=== PATIENT | female | born 1985 | race Caucasian/White ===

== ENCOUNTER 2022-06-24 16:56 | Inpatient (IN) | payer OTHER, SELFPAY ==
[2022-06-24 17:17] VITALS: BMI 45.4
[2022-06-24 18:04] VITALS: BP 140/88; PULSE 112
[2022-06-24] MEDS: miSOPROStoL 25 MCG/0.25 TABLET VAGINAL ×2 (18:06→20:59)
[2022-06-24 18:21] LABS: SARS PCR* Negative SARS-CoV-2 (Negative)
[2022-06-24 18:22] VITALS: BP 142/83; PULSE 106
--- NOTE | 2022-06-24 19:16 | PM.OBHPLI ---
OB - H&P: HPI Labor/Induction History of Present Illness Time Seen by Provider: 19:16 Date Seen: 06/24/22 Chief Complaint: The patient is a 37 year old 3 para 1 at 38w6d gestation by early ultrasound. (was not sure on dates, conceived shortly after nexplanon removal) who presents with induction of labor for AMA. Chief complaint: IOL 38.6 AMA : 3 Para: 1 Indications for induction: other (ama ) Narrative: Mercedes Morris is a 37 year old female who presents for IOL for AMA, BMI>45. Patient had failed 1 hour GTT, but passed 3 hour GTT. She has anxiety, treated with zoloft. Her first had 28 week IUFD with sacroccygeal teratoma. Growth 90%ile on last growth scan. History of Present Dating criteria: based on 1st trimester US only (conceived shortly after nexplanon was removed. ) care: good care Ultrasounds: normal 1st trimester US and normal mid trimester US complications comment: AMA, BMI >45 Labs Blood type: O (+) positive Rubella: immune RPR/VDLR: nonreactive GBS status: negative HBsAG: negative Review of Systems Status of ROS: Reports: 10 or more systems reviewed and unremarkable except as noted in History and below Meds Home Medications and Allergies Home Medications Medication Instructions Recorded Confirmed Type montelukast 10 mg tablet 10 mg PO DAILY 06/24/22 06/24/22 History sertraline 100 mg tablet 100 mg PO DAILY 06/24/22 06/24/22 History OB - H&P: Exam Physical Exam: Vital signs: Pulse BP 106 H 142/83 H 06/24/22 18:22 06/24/22 18:22 Constitutional: Constitutional: no acute distress Routine HEENT Exam: Head: Present atraumatic ENT: Present mucous membranes moist Routine Neck Exam: Neck: Present full ROM Detailed Neck Exam: Thyroids: Thyroid: Present normal Routine Respiratory Exam: Respiratory: Present CTA bilaterally Routine Cardiovascular Exam: Cardiovascular: RRR, S1 and S2 Detailed Labor and Delivery Exam: Patient Gravid: Yes Dilation (cm): 1 Effacement (%): 0 Cervix position: posterior Consistency: firm Cervical ripeness score: 2 Tachysystole: No Routine Skin Exam: Present intact Routine Neurological Exam: Present alert Routine Psychiatric Exam: Present normal affect OB - Problem Based A/P Additional Plan (1) Term of female : Status: Acute (2) Obesity: Status: Acute (3) AMA (advanced maternal age) multigravida 35+: Status: Acute Delivery/Labor/Induction Plan Plan: induction Induction method: per misoprostol protocol
[2022-06-24 19:23] LABS: Basophils Absolute Auto 0.03 K/uL (0.00-0.30); Basophils Percent Auto 0.3 % (0.0-3.0); Eosinophils Absolute Auto 0.07 K/uL (0.00-0.50); Eosinophils Percent Auto 0.8 % (0.0-7.0); Hematocrit 35.6 % (33.0-51.0); Hemoglobin* 12.2 gm/dL (12.0-16.0); Immature Granulocytes Abs Auto 0.03 K/uL (0.00-0.30); Immature Granulocytes Pct Auto 0.3 %; Lymphocytes Percent Auto 15.9 % (20-44); Mean Corpuscular HGB Conc 34 gm/dL (32-36); Mean Corpuscular Hemoglobin 31 pg (26-34); Mean Corpuscular Volume 91 fL (80-100); Monocytes Percent Auto 9.9 % (0.0-11.0); Neutrophils Percent Auto 72.8 % (42.0-72.0); Platelet Count* 189 K/uL (140-440); RDW Coefficient of Variation % 12.4 % (11.5-15.5); Red Blood Count 3.92 m/uL (4.00-5.20); White Blood Count* 8.83 K/uL (4.50-11.00)
[2022-06-24 19:24] VITALS: BP 143/92; PULSE 98
[2022-06-24 19:25] LABS: Slide Review Reflex No
[2022-06-24 19:32] VITALS: BP 141/92; PULSE 108; RESP 16; TEMP 36.6
[2022-06-24 21:10] VITALS: BP 136/72; PULSE 96; RESP 16; TEMP 36.8
[2022-06-25] VITALS (84 sets, daily range): BP systolic 103–201; BP diastolic 58–104; PULSE 81–202; RESP 16–28; TEMP 36.6–37.6; O2SAT 90–100
[2022-06-25] MEDS: miSOPROStoL 25 MCG/0.25 TABLET VAGINAL ×2 (03:26)
[2022-06-25] MEDS: LACTATED RINGERS 1000 ML 1,000 ML 500 ML IV (04:08)
--- NOTE | 2022-06-25 06:15 | P.OBPN_ITS ---
Subjective Time Seen by Provider: 06:16 Date Seen: 06/25/22 Narrative: Patient has done well overnight. Received 5 doses of vaginal cytotec. Is rober regularly, rating them 5-6/10. Objective Vital Signs: Last Vital Signs Temp 98.3 F 06/25/22 00:00 Pulse 84 06/25/22 06:14 Resp 16 06/25/22 00:00 BP 140/63 H 06/25/22 06:14 Pelvic Exam Dilation (cm): 3 Effacement (%): 70 Station: -2 Contractions Monitor mode: External Contraction pattern: Regular Contraction intensity: Moderate Pitocin Rate (mU/min): 0 Assessment Assessment: induction ongoing Station: -2 Status: Category l Heart Rate Baseline: 125 Perlite Grinder Variability: Moderate (6-25) Monitor Accelerations: Present Monitor Decelerations: None Labor Progress: Malone score is now 6. Will stop cytotec and start pitocin 4 hours after last dose (approximately 7am). Plan Plan: - plan AROM at noon if not delivered - anticipate
[2022-06-25 07:07] LABS: Hematocrit 37.2 % (33.0-51.0); Hemoglobin* 12.8 gm/dL (12.0-16.0); Mean Corpuscular HGB Conc 34 gm/dL (32-36); Mean Corpuscular Hemoglobin 31 pg (26-34); Mean Corpuscular Volume 91 fL (80-100); Platelet Count* 188 K/uL (140-440); White Blood Count* 11.23 K/uL (4.50-11.00)
[2022-06-25 07:15] LABS: Slide Review Reflex No
[2022-06-25 07:26] LABS: Alanine Aminotransferase* 65 U/L (4-35); Aspartate Amino Transferase* 53 U/L (12-35); Creatinine* 0.5 mg/dL (0.5-1.5); Est. Creatinine Clearance* 152.72; Estimated Glomerular Filt Rate 125 ml/min
[2022-06-25 07:27] LABS: Blood Urea Nitrogen* 7 mg/dL (5-24); INR 0.98 (0.91-1.10); Prothrombin Time 13.5 Seconds; Uric Acid* 5.9 mg/dL (2.2-8.4)
[2022-06-25 07:28] LABS: Fibrinogen* 497 mg/dL (200-450); Partial Thromboplastin Time* 27 Seconds (23-33)
[2022-06-25 08:17] LABS: Creatinine Urine 42.4 mg/dL; Total Protein Urine 13 mg/dL
[2022-06-25] MEDS: MAGNESIUM IV 4 GM/100 ML PIGGYBACK IVPB (09:13)
[2022-06-25] MEDS: LACTATED RINGERS 1000 ML 1,000 ML 75 ML IV ×2 (09:24→16:29)
--- NOTE | 2022-06-25 09:48 | PM.OBPNL ---
Subjective Time Seen by Provider: 09:49 Date Seen: 06/25/22 Narrative: Patient has developed elevated bp >160 systolic x 2 and protein/cr ratio of 0.3. diagnosed with preeclampsia with severe features and magnesium was started. Patent has been rober without starting pitocin. SROM, AROM of forebag. Objective Vital Signs: Last Vital Signs Temp 98.8 F 06/25/22 09:42 Pulse 108 H 06/25/22 09:42 Resp 28 H 06/25/22 09:42 BP 184/104 H 06/25/22 09:42 Pulse Ox 99 06/25/22 09:21 Pelvic Exam Dilation (cm): 4-5 Effacement (%): 80 Station: -2 Contractions Monitor mode: External Contraction pattern: Regular Contraction intensity: Moderate Pitocin Rate (mU/min): 0 Assessment Assessment: active labor Station: -2 Amniotic Membrane Status: SROM Status: Category l Heart Rate Baseline: 125 Clinical Social Worker Variability: Moderate (6-25) Monitor Accelerations: Present Monitor Decelerations: None Plan Plan: - magnesium for preeclampsia with severe features. Labs q6h. Monitor for symptoms (asymptomatic at this time) - FYI page sent to [employer]UNICATION[employer] ENGINE[employer] sent that I started magnesium. - Peds alerted to attend delivery - Anticipate .
[2022-06-25] MEDS: LABETALOL HCL 5 MG/ML inj IVP (10:00)
[2022-06-25] MEDS: SODIUM CHLORIDE 0.9 % (FLUSH) 10 ML SYRINGE IVF (10:02)
[2022-06-25] MEDS: ROPIVACAINE 0.2% 100 ml 100 ML 12 MG EPIDURAL (10:30)
--- NOTE | 2022-06-25 10:54 | PM.ANBPRC ---
[facility] Social History Smoking Status: Former smoker Meds Home Medications and Allergies Home Medications Medication Instructions Recorded Confirmed Type montelukast 10 mg tablet 10 mg PO DAILY 06/24/22 06/24/22 History sertraline 100 mg tablet 100 mg PO DAILY 06/24/22 06/24/22 History Allergies Allergy/AdvReac Type Severity Reaction Status Date / Time No Known Drug Allergies Allergy Verified 06/25/22 01:04 Results Labs Labs: Laboratory Results - last 24 hr 06/24/22 06/24/22 06/25/22 17:06 19:16 06:55 WBC 8.83 11.23 H RBC 3.92 L 4.10 Hgb 12.2 12.8 Hct 35.6 37.2 MCV 91 91 MCH 31 31 MCHC 34 34 RDW Coeff of Rebeca 12.4 Plt Count 189 188 Neut % (Auto) 72.8 H Lymph % (Auto) 15.9 L Christian % (Auto) 9.9 Eos % (Auto) 0.8 Baso % (Auto) 0.3 Neut # (Auto) 6.40 Lymph # (Auto) 1.40 Christian # (Auto) 0.90 Eos # (Auto) 0.07 Baso # (Auto) 0.03 INR 0.98 APTT 27 Fibrinogen 497 H BUN 7 Creatinine 0.5 Estimated Creat Clear 152.72 Estimated GFR 125 Uric Acid 5.9 AST 53 H ALT 65 H Urine Creatinine Protein/Creatinin Ratio Urine Total Protein SARS-CoV-2 (PCR) Negative SARS-CoV-2 Blood Type O Positive Antibody Screen NEGATIVE 06/25/22 07:30 WBC RBC Hgb Hct MCV MCH MCHC RDW Coeff of Rebeca Plt Count Neut % (Auto) Lymph % (Auto) Christian % (Auto) Eos % (Auto) Baso % (Auto) Neut # (Auto) Lymph # (Auto) Christian # (Auto) Eos # (Auto) Baso # (Auto) INR APTT Fibrinogen BUN Creatinine Estimated Creat Clear Estimated GFR Uric Acid AST ALT Urine Creatinine 42.4 Protein/Creatinin Ratio 0.30 H Urine Total Protein 13 SARS-CoV-2 (PCR) Blood Type Antibody Screen Vital Signs Vital Signs: Last Vital Signs Temp 98.8 F 06/25/22 09:42 Pulse 85 06/25/22 10:54 Resp 28 H 06/25/22 09:42 BP 129/71 06/25/22 10:54 Pulse Ox 99 06/25/22 09:21 Weight: 131.542 kg Height: 170.18 cm Anesthesia Procedures Epidural Insertion Patient Location: OB Start Time: 10:00 Stop Time: 10:55 Start Date: 06/25/22 Stop Date: 06/25/22 Reason for Block: procedure for pain Patient Position: sitting Performed By: Cristofer Beard Preanesthetic Checklist: IV checked, risks and benefits discussed, surgical consent, monitors and equipment checked, pre-op evaluation, timeout performed and anesthesia consent Prep: chlorhexidine gluconate Monitoring: blood pressure monitoring, continuous pulse oximetry and heart rate Approach: midline Vertebral Space: lumbar (1-5) Epidural Technique: JOEL saline Needle Type: Tuohy needle Injection Technique: continuous catheter Needle gauge: 17 Needle Length (cm): 10 cm Needle Insertion Depth (cm): 8 Catheter Gauge: 19 Catheter Type: multi-orifice Catheter at skin depth (cm): 14 Test Dose Result: negative and lidocaine 1.5% with epinephrine 1 to 200,000
[2022-06-25] MEDS: OXYTOCIN 30 unit/500 ML in NS 30 UNIT/500 ML BAG IVPB (11:30)
[2022-06-25 12:34] LABS: Hematocrit 38.9 % (33.0-51.0); Hemoglobin* 13.3 gm/dL (12.0-16.0); Mean Corpuscular HGB Conc 34 gm/dL (32-36); Mean Corpuscular Hemoglobin 31 pg (26-34); Mean Corpuscular Volume 91 fL (80-100); Platelet Count* 204 K/uL (140-440); Red Blood Count 4.26 m/uL (4.00-5.20); White Blood Count* 13.43 K/uL (4.50-11.00)
[2022-06-25 12:48] LABS: Slide Review Reflex No
[2022-06-25] MEDS: ONDANSETRON 2 MG/ML inj 4 MG IV (12:53)
[2022-06-25 12:55] LABS: Alanine Aminotransferase* 71 U/L (4-35); Aspartate Amino Transferase* 58 U/L (12-35); Blood Urea Nitrogen* 7 mg/dL (5-24); Creatinine* 0.5 mg/dL (0.5-1.5); Est. Creatinine Clearance* 152.72; Estimated Glomerular Filt Rate 125 ml/min
--- NOTE | 2022-06-25 16:04 | W.PM.OBVAGDE ---
OB Procedure Vag Delivery Mother Details Mother Details: The patient is a 37 year-old, 3, Para 1, admitted on 06/24/22 at 38w6d gestation for IOL for AMA. She received cytotec overnight and gunderson score favorable at 6am. Unfortunately, she developed elevated blood pressure in severe range. Labs showed protein/cr ratio of 0.3. Otherwise reassuring. We diagnosed severe preeclampsia based on this and magnesium was started. Patient did require labetalol x 1 for elevated blood pressures. Epidural was placed for analgesia and patient required no further treatment (Magnesium continued). Patient had slow progression. Had SROM and then we broke forebag. Had pitocin added. : 3 Para: 1 Weeks Gestation: 39 Admission Date: 06/24/22 Additional Details Amniotic Membrane Status: SROM Amniotic Membrane Rupture Date: 06/25/22 Amniotic Membrane Rupture Time: 09:31 Amniotic Membrane Fluid Description: Clear Analgesia/Anesthesia Type: Epidural Waterbirth: No Pitcoin: Yes Intrapartal Events: Labor Induction Induction Method: per misoprostol protocol, per pitocin protocol and other (rupture of forebag) Labor Onset: 10:00 Complete: 13:38 Pushin:44 Heart: heart tones during second stage showed intermittent early and variable decels with pushing. Good variability. Delivery Details Delivery Date: 06/25/22 Delivery Time: 15:31 Route of delivery: Gender: Male Infant Viability: Alive; Heart Rate Present Position at Delivery: OA Delivery Details: Delivered over intact perineum via spontaneous vaginal delivery. Patient had nuchal cord that was unable to be reduced and was delivered through. Had 25 second shoulder dystocia. Resolved with Red and suprapubic pressure. was placed on maternal abdomen.? Cord was clamped immediately and baby was taken to warmer. EDWIN Blair was in attendance at delivery due to maternal magnesium, please see her resuscitation note for details. There was terminal meconium. Infant weight [id number]. 1 Minute Interval Total Score: 2 5 Minute Interval Total Score: 8 10 Minute Interval Total Score: 8 Additional Details Shoulder Dystocia: Yes Placenta Delivery Time: 15:43 Placental Delivery Description: Spontaneous Blood Loss: 50 Laceration: None Blood Loss Measurement Type: QBL Bakri Used: No Sponge/Need Count Correct: Yes Cord Vessel Description: 3 Vessels, Nuchal Cord and Delivered through Event Summary Status: Mother and infant were stable after delivery. Disposition: floor
[2022-06-25 18:43] LABS: Hematocrit 37.1 % (33.0-51.0); Hemoglobin* 12.7 gm/dL (12.0-16.0); Mean Corpuscular HGB Conc 34 gm/dL (32-36); Mean Corpuscular Hemoglobin 31 pg (26-34); Mean Corpuscular Volume 91 fL (80-100); Platelet Count* 230 K/uL (140-440); Red Blood Count 4.07 m/uL (4.00-5.20); White Blood Count* 23.22 K/uL (4.50-11.00)
[2022-06-25 18:47] LABS: Slide Review Reflex No
[2022-06-25 18:59] LABS: Alanine Aminotransferase* 74 U/L (4-35); Aspartate Amino Transferase* 71 U/L (12-35); Blood Urea Nitrogen* 7 mg/dL (5-24); Creatinine* 0.5 mg/dL (0.5-1.5); Est. Creatinine Clearance* 152.72; Estimated Glomerular Filt Rate 125 ml/min
[2022-06-25] MEDS: miSOPROStoL 800 MCG/4 TABLET PR (20:00)
[2022-06-25] MEDS: TRANEXAMIC ACID 100 MG/ML INJ 1000 MG IV (20:14)
[2022-06-25 20:23] LABS: Basophils Percent Auto 0.1 % (0.0-3.0); Hematocrit 32.6 % (33.0-51.0); Hemoglobin* 10.9 gm/dL (12.0-16.0); Immature Granulocytes Pct Auto 0.4 %; Lymphocytes Percent Auto 6.3 % (20-44); Mean Corpuscular HGB Conc 33 gm/dL (32-36); Mean Corpuscular Hemoglobin 31 pg (26-34); Mean Corpuscular Volume 92 fL (80-100); Monocytes Percent Auto 3.8 % (0.0-11.0); Neutrophils Percent Auto 89.4 % (42.0-72.0); Platelet Count* 219 K/uL (140-440); RDW Coefficient of Variation % 12.6 % (11.5-15.5); Red Blood Count 3.54 m/uL (4.00-5.20); White Blood Count* 19.02 K/uL (4.50-11.00)
--- NOTE | 2022-06-25 20:39 | PM.OBCN1 ---
OB - CN: HPI Date of Consult Time Seen by Provider: 20:00 Date Seen: 06/25/22 Patient: Raquel Patient Consult date: 06/25/22 Requesting Physician: Karen Durand MD Primary Care Provider: Namita Mo MD Consult Narrative Narrative: Mercedes is a 37-year-old 3 para 2101 who is from a vaginal delivery at 5:35 p.m. no lacerations. Quantitative blood loss at delivery was 50 mL. I was called to the patient's room for cis significant bleeding. Blood loss when I entered the room was reported to be 1212 mL. The patient's labor course was complicated by severe preeclampsia by both blood pressure and liver function test criteria. She is currently on magnesium sulfate for seizure prophylaxis. She is having laboratory testing done every 6 hours. Her last hemoglobin was performed at 6:35 p.m. and was 12.7. I ordered another CBC stat, INR, PTT and fibrinogen. A Felton catheter was placed for 200 mL of very concentrated urine and I performed a bimanual exam which resulted in greater than 700 mL of clot. Once the clot was removed the uterus was noted to be firm, 1 cm below the umbilicus and minimal bleeding noted. Total blood loss after delivery 1957 mL. Massive transfusion protocol was initiated. She will be getting at least 1 unit of O-negative, 1 unit FFP and the lab was in the process of crossing her for 2 units so whichever red blood cells are ready soonest whether there O negative or cross matched will be given. The patient was able to talk through this entire procedure. She was given nitrous gas for pain control for the bimanual exam. Her most recent pulse was 103. Most recent blood pressure 120/68: Checking blood pressure every 15 minutes. I will check a CBC, INR, PTT and fibrinogen again after 2 units packed red blood cells and 1 unit FFP have been transfused. History of Present complications comment: AMA, BMI >45 History History 3 Elective abortions Para 1 Spontaneous abortions Hx # Term Pregnancies Ectopic pregnancies Hx # Pregnancies Multiple births Number of Living Children 1 Labs Blood type: O (+) positive Rubella: immune RPR/VDLR: nonreactive GBS status: negative HBsAG: negative OB Labs: Lab Assessment Start: 06/24/22 17:00 Freq: ONCE Status: Complete Protocol: PC.OBGBS Activity Type Activity Date Activity User E-sign Co-sign Detail Recorded Client Recorded Date Recorded By Document 06/24/22 17:18 [facility] [id number] 06/24/22 17:18 [facility] 06/24/22 17:18 Lab Assessment GBS Negative Previous Louise with Invasive GBS No Does Patient Meet Criteria No No Treatment Needed OK Maternal Blood Type O Maternal RH Factor Positive Evaluate Maternal Rubella Immune Status Immune Hepatitis B Surface Antigen Negative Maternal HIV Status Negative Maternal Syphillis (RPR) Status Negative Are Labs Available Yes [facility] Medical History (Updated 06/25/22 @ 20:48 by Ilsa Osman MD) Macrosomic baby ?P08.0 - Exceptionally large baby (ICD-10) hemorrhage ?O72.1 - Other immediate hemorrhage (ICD-10) Shoulder dystocia during labor and delivery, delivered ?O66.0 - Obstructed labor due to shoulder dystocia (ICD-10) Term of female ?Z37.0 - Single live (ICD-10) Social History Smoking Status: Former smoker Meds Home Medications and Allergies Home Medications Medication Instructions Recorded Confirmed Type montelukast 10 mg tablet 10 mg PO DAILY 06/24/22 06/24/22 History sertraline 100 mg tablet 100 mg PO DAILY 06/24/22 06/24/22 History Allergies Allergy/AdvReac Type Severity Reaction Status Date / Time No Known Drug Allergies Allergy Verified 06/25/22 01:04 OB - H&P: Exam Physical Exam: Vital signs: Temp Pulse Resp BP Pulse Ox 99.0 F 114 H 20 103/69 95 06/25/22 19:56 06/25/22 19:56 06/25/22 19:56 06/25/22 19:56 06/25/22 19:56 OB - Results Labs Labs: Short CBC 06/25/22 06/25/22 06/25/22 Range/Units 06:55 12:27 18:35 WBC 11.23 H 13.43 H 23.22 H (4.50-11.00) K/uL Hgb 12.8 13.3 12.7 (12.0-16.0) gm/dL Hct 37.2 38.9 37.1 (33.0-51.0) % Plt Count 188 204 230 (140-440) K/uL BMP 06/25/22 06/25/22 06/25/22 06:55 12:27 18:35 BUN 7 7 7 Creatinine 0.5 0.5 0.5 Liver Function 06/25/22 06/25/22 06/25/22 Range/Units 06:55 12:27 18:35 AST 53 H 58 H 71 H (12-35) U/L ALT 65 H 71 H 74 H (4-35) U/L OB - CN: A/P Assessment and Plan (1) Term of female : Status: Inactive (2) Obesity: Status: Acute (3) AMA (advanced maternal age) multigravida 35+: Status: Acute (4) hemorrhage: Problem details: 1gm IV TXA, 800mg [place] cytotec, and 20u pitocin in 1L LR. Status: Acute Assessment and Plan: 1. Getting 2u pRBC's + 1 uFFP 2. Recheck cbc, fibrinogen, INR and PTT after transfusion of above. 3. 2gm IV ancef x 1 now to prevent infection after manual removal of blood clots from the uterus. 4. Continue to monitor vital signes closely. 5. Getting preeclampsia labs checked Q6hr so will be getting Q6hr hgb and platelets. (5) Macrosomic baby: Problem details: 9#5oz. Status: Acute
[2022-06-25 20:46] LABS: Slide Review Reflex No
--- NOTE | 2022-06-25 20:48 | P.EN_ITS ---
Chart Event Note Time Seen by Provider: 20:48 Date Seen: 06/25/22 Chart Event Note: I was called in to assess the patient due to concern for post- hemorrhage. Per nursing, patient was noted to have increased vaginal bleeding at around 1930. At the time I was called QBL was just under 1000 cc. Upon my arrival, AUDIT CLERKS SUPERVISOR electronic integrated systems mechanic, Dr. Osman, was at the bedside. Patient had received IV pitocin, rectal cytotec, and 1g of TXA was being started. Urinary catheter was placed with return of several hundred ccs of urine. Dr. Osman performed a bimanual exam with return of ~700 cc of blood clots. Massive transfusion protocol was called. Patient will receive 2 units of PRBC and 1 unit FFP. Patient remained alert and talking throughout. Tachycardic to the 1teens, vitals otherwise WNL. No hypotension.
[2022-06-25 21:01] LABS: INR 1.01 (0.91-1.10); Prothrombin Time 13.9 Seconds
[2022-06-25 21:02] LABS: Fibrinogen* 444 mg/dL (200-450); Partial Thromboplastin Time* 27 Seconds (23-33)
[2022-06-25] MEDS: CEFAZOLIN 2 GM INJ IVP (22:57)
[2022-06-26] VITALS (7 sets, daily range): BP systolic 120–150; BP diastolic 70–87; PULSE 92–109; RESP 16–161; TEMP 36.7–36.9; O2SAT 95–98
[2022-06-26] MEDS: SERTRALINE 100 MG TABLET PO ×2 (00:33→22:11)
[2022-06-26 01:21] LABS: Hematocrit 31.4 % (33.0-51.0); Hemoglobin* 10.7 gm/dL (12.0-16.0); Mean Corpuscular HGB Conc 34 gm/dL (32-36); Mean Corpuscular Hemoglobin 31 pg (26-34); Mean Corpuscular Volume 91 fL (80-100); Platelet Count* 193 K/uL (140-440); Red Blood Count 3.45 m/uL (4.00-5.20); White Blood Count* 16.97 K/uL (4.50-11.00)
[2022-06-26 01:36] LABS: Slide Review Reflex No
[2022-06-26 01:55] LABS: Creatinine* 0.5 mg/dL (0.5-1.5); Est. Creatinine Clearance* 152.72; Estimated Glomerular Filt Rate 125 ml/min
[2022-06-26 01:56] LABS: Alanine Aminotransferase* 67 U/L (4-35); Aspartate Amino Transferase* 56 U/L (12-35); Blood Urea Nitrogen* 9 mg/dL (5-24)
[2022-06-26 06:33] LABS: Hematocrit 30.9 % (33.0-51.0); Hemoglobin* 10.4 gm/dL (12.0-16.0); Mean Corpuscular HGB Conc 34 gm/dL (32-36); Mean Corpuscular Hemoglobin 31 pg (26-34); Mean Corpuscular Volume 92 fL (80-100); Platelet Count* 203 K/uL (140-440); Red Blood Count 3.37 m/uL (4.00-5.20); White Blood Count* 14.86 K/uL (4.50-11.00)
[2022-06-26 06:46] LABS: Slide Review Reflex No
[2022-06-26 06:50] LABS: Alanine Aminotransferase* 65 U/L (4-35); Aspartate Amino Transferase* 52 U/L (12-35); Blood Urea Nitrogen* 9 mg/dL (5-24); Creatinine* 0.6 mg/dL (0.5-1.5); Est. Creatinine Clearance* 127.26; Estimated Glomerular Filt Rate 120 ml/min
--- NOTE | 2022-06-26 11:10 | PM.OBPNVD1 ---
OB - PN:Subj Subjective Time Seen by Provider: 11:10 Date Seen: 06/26/22 Interval history: hemorrhage last evening at 1930. QBL 1957 mL. Massive transfusion protocol initiated, patient received 2 units PRBC and 1 unit FFP. Subsequently did well overnight. BPs remained WNL. On magnesium for severe pre-eclampsia. status: feeding status: breast and bottle feeding Narrative: Patient states she is feeling good this AM. Able to get out of bed and clean-up. Requests her hayden catheter be removed. Minimal discomfort. Bleeding is minimal. well with good latch overnight. Denies headache, blurry vision. A little foggy on mag. OB - PN: Obj Exam Physical Exam: Vital signs: Temp Pulse Resp BP Pulse Ox 98.2 F 104 H 18 120/70 96 06/26/22 03:15 06/25/22 22:10 06/26/22 03:15 06/26/22 03:15 06/26/22 03:15 Narrative: General appearance: Well-appearing adult female. Alert, oriented and appropriate. Sitting up in hospital bed. HEENT: EOMI, no conjunctival injection or discharge. MMM. Neck: Supple. CV: RRR, no rubs, murmurs or extra heart sounds. Pulm: CTAB, no wheezes, rales or rhonchi. Abdomen: Soft, non-tender. Fudus palpated 1 cm below the umbilicus. MSK: Moving all extremities. Ext: Warm and well-perfused. No LE edema. Skin: No rashes appreciated over exposed skin. Neuro: Grossly normal strenth and sensation. No focal deficits. Psych: Normal affect. Urinary Catheter Management: Urethral: Cath placed during this visit: no OB - PN: Obj Data Labs Labs: Laboratory Results - last 24 hr 06/24/22 06/25/22 06/25/22 19:16 12:27 18:35 WBC 13.43 H 23.22 H RBC 4.26 4.07 Hgb 13.3 12.7 Hct 38.9 37.1 MCV 91 91 MCH 31 31 MCHC 34 34 RDW Coeff of Rebeca Plt Count 204 230 Neut % (Auto) Lymph % (Auto) Sampson % (Auto) Eos % (Auto) Baso % (Auto) Neut # (Auto) Lymph # (Auto) Sampson # (Auto) Eos # (Auto) Baso # (Auto) INR APTT Fibrinogen BUN 7 7 Creatinine 0.5 0.5 Estimated Creat Clear 152.72 152.72 Estimated GFR 125 125 AST 58 H 71 H ALT 71 H 74 H Blood Type O Positive Antibody Screen NEGATIVE Crossmatch (AHG) See Detail 06/25/22 06/26/22 06/26/22 20:17 01:00 06:05 WBC 19.02 H 16.97 H 14.86 H RBC 3.54 L 3.45 L 3.37 L Hgb 10.9 L 10.7 L 10.4 L Hct 32.6 L 31.4 L 30.9 L MCV 92 91 92 MCH 31 31 31 MCHC 33 34 34 RDW Coeff of Rebeca 12.6 Plt Count 219 193 203 Neut % (Auto) 89.4 H Lymph % (Auto) 6.3 L Sampson % (Auto) 3.8 Eos % (Auto) 0.0 Baso % (Auto) 0.1 Neut # (Auto) 17.00 H Lymph # (Auto) 1.20 Sampson # (Auto) 0.70 Eos # (Auto) 0.00 Baso # (Auto) 0.00 INR 1.01 APTT 27 Fibrinogen 444 BUN 9 9 Creatinine 0.5 0.6 Estimated Creat Clear 152.72 127.26 Estimated GFR 125 120 AST 56 H 52 H ALT 67 H 65 H Blood Type Antibody Screen Crossmatch (AHG) OB - PN: A/P Vaginal Delivery Assessment and Plan (1) Term of female : Status: Inactive Assessment and Plan: - Continue breast/bottle feed ad harleen - Encourage ambulation (2) Obesity: Status: Acute (3) AMA (advanced maternal age) multigravida 35+: Status: Acute (4) hemorrhage: Problem details: 1gm IV TXA, 800mg [place] cytotec, and 20u pitocin in 1L LR. Massive transfusion protocol, s/p 2 units PRBC and 1 unit FFP. 0600 Hgb 06/26 10.4. Status: Acute Assessment and Plan: - Vitals and hgb stable. Continue to monitor bleeding - D/c hayedn catheter (5) Macrosomic baby: Problem details: 9#5oz. at 39w0d. 25 second shoulder dystocia. Status: Acute (6) Severe pre-eclampsia: Problem details: Magnesium started AM 06/25 for severe range blood pressures. Labs pr/cr ratio 0.3 and mildly elevated LFTs. Required single dose IV labetalol. BPs otherwise controlled w/o medication. Status: Acute Assessment and Plan: - Remains asymptomatic - Labs stable, improved - Plan to d/c magnesium at 1530 06/26 - Antihypertensives as needed. Currently well-controlled without medication - AM labs Plan Comments: - Anticipate discharge 06/27
[2022-06-26] MEDS: CETIRIZINE HCL 10 MG TABLET PO (22:10)
[2022-06-26] MEDS: MONTELUKAST 10 MG TABLET PO (22:10)
[2022-06-26] MEDS: DOCUSATE SODIUM 100 MG CAPSULE PO (22:10)
[2022-06-26] MEDS: LANOLIN CREAM 1 APPLIC TOPICAL (22:10)
[2022-06-27 00:30] VITALS: BP 125/85
[2022-06-27] MEDS: SODIUM CHLORIDE 0.9 % (FLUSH) 10 ML SYRINGE IVF (00:47)
[2022-06-27 03:47] VITALS: BP 124/84; PULSE 92; RESP 18; TEMP 36.9; O2SAT 95
[2022-06-27 06:39] LABS: Basophils Absolute Auto 0.03 K/uL (0.00-0.30); Basophils Percent Auto 0.3 % (0.0-3.0); Eosinophils Absolute Auto 0.17 K/uL (0.00-0.50); Eosinophils Percent Auto 1.6 % (0.0-7.0); Hematocrit 28.1 % (33.0-51.0); Hemoglobin* 9.5 gm/dL (12.0-16.0); Immature Granulocytes Abs Auto 0.05 K/uL (0.00-0.30); Immature Granulocytes Pct Auto 0.5 %; Lymphocytes Absolute Auto 2.91 K/uL (0.90-2.90); Mean Corpuscular HGB Conc 34 gm/dL (32-36); Mean Corpuscular Hemoglobin 31 pg (26-34); Mean Corpuscular Volume 93 fL (80-100); Monocytes Percent Auto 6.1 % (0.0-11.0); Neutrophils Absolute Auto 6.94 K/uL (1.7-7.0); Neutrophils Percent Auto 64.5 % (42.0-72.0); Platelet Count* 201 K/uL (140-440); Red Blood Count 3.03 m/uL (4.00-5.20); White Blood Count* 10.76 K/uL (4.50-11.00)
[2022-06-27 06:50] LABS: Slide Review Reflex No
[2022-06-27 06:55] LABS: Alanine Aminotransferase* 45 U/L (4-35); Aspartate Amino Transferase* 30 U/L (12-35); Blood Urea Nitrogen* 10 mg/dL (5-24); Creatinine* 0.5 mg/dL (0.5-1.5); Est. Creatinine Clearance* 152.72; Estimated Glomerular Filt Rate 125 ml/min
[2022-06-27 08:51] VITALS: BP 148/85; PULSE 108; RESP 18; TEMP 37.1; O2SAT 94
--- NOTE | 2022-06-27 10:31 | P.DS_ITS ---
DS: Providers Provider Time Seen by Provider: 10:31 Date Seen: 06/27/22 Date of admission: 06/24/22 16:56 Primary care physician: Namita Mo MD Admitting Clinician: Namita Mo MD Consults: Ilsa Osman MD Attending Physician on discharge: Namita Mo MD Date of Discharge: 06/27/22 DS: Diagnosis Discharge Diagnosis (1) Severe pre-eclampsia: Status: Acute Problem details: Magnesium started AM 06/25 for severe range blood pressures. Labs pr/cr ratio 0.3 and mildly elevated LFTs. Required single dose IV labetalol. BPs otherwise controlled w/o medication. (2) hemorrhage: Status: Acute Problem details: 1gm IV TXA, 800mg [place] cytotec, and 20u pitocin in 1L LR. Massive transfusion protocol, s/p 2 units PRBC and 1 unit FFP. 0600 Hgb 06/26 10.4. (3) Transfusion of blood during current hospitalization: Status: Acute (4) Macrosomic baby: Status: Acute Problem details: 9#5oz. at 39w0d. 25 second shoulder dystocia. (5) AMA (advanced maternal age) multigravida 35+: Status: Acute (6) Obesity: Status: Acute (7) : Status: Acute Exam Narrative: Exam Narrative: General appearance: Well-appearing adult female. Alert, oriented and appropriate. Sitting up in hospital bed. HEENT: EOMI, no conjunctival injection or discharge. MMM. Neck: Supple. CV: RRR, no rubs, murmurs or extra heart sounds. Pulm: CTAB, no wheezes, rales or rhonchi. Abdomen: Soft, non-tender. Fundus palpated 1 cm below the umbilicus. MSK: Moving all extremities. Ext: Warm and well-perfused. No LE edema. Skin: No rashes appreciated over exposed skin. Neuro: Grossly normal strength and sensation. No focal deficits. Psych: Normal affect. Const: Vital Signs, click to edit/add: Vital Signs - 24 hr 06/26/22 12:20 06/26/22 16:20 06/26/22 13:20 Temperature 98.5 F 98.5 F Pulse Rate [Pulse Oximeter] 102 H 109 H Respiratory Rate 18 161 H Blood Pressure [Le ft Arm] 150/87 H 131/80 137/83 Pulse Oximetry 98 96 Oxygen Delivery Me thod Room Air Room Air 06/26/22 14:25 06/26/22 20:09 06/27/22 00:30 Temperature 98.0 F Pulse Rate [Pulse Oximeter] 92 Respiratory Rate 18 Blood Pressure [Le ft Arm] 124/84 141/79 H 125/85 Pulse Oximetry 95 Oxygen Delivery Me thod Room Air 06/27/22 03:47 06/27/22 08:51 Temperature 98.5 F 98.7 F Pulse Rate [Pulse Oximeter] 92 108 H Respiratory Rate 18 18 Blood Pressure [Le ft Arm] 124/84 148/85 H Pulse Oximetry 95 94 Oxygen Delivery Me thod Room Air Room Air OB - DS: Summary Hospital Course Hospital Course: The patient is a 37 year old G 1 P 1101 at 39 weeks gestation that was admitted to the Center on 06/24/22 for IOL. Developed severe pre-eclampsia with severe range BP and mildly elevated LFTs on hospital day #1 and was started on magnesium. She had an vaginal delivery complicated by 25 second shoulder dystocia. She delivered a viable male . Delayed post- hemorrhage with QBL 1957 mL requiring massive transfusion protocol, received 2 units PRBC and 1 unit FFP. Subsequently recovered well. Occasional elevated BPs, non-severe range, but primarily 120s/80s, asymptomatic. Pre-E labs improving. She is breast feeding. Peripartum Data delivery method: Vaginal Laceration description: None Episiotomy description: None complications: transfusion [place] Infant Gender: Male Infant Discharge Plan: Home Status at Discharge Functional status at discharge: independent ambulation Overall status at discharge: patient is progressing back to baseline Time Spent with Patient Time attestation: Total time spent providing and/or coordinating discharge services: Time spent: Less than 30 minutes Discharge Plan Discharge Disposition: Home, Self-Care Date of Admission: 06/24/22 16:56 Attending Provider on Discharge: Kizzy Jones Consulting Providers: Ilsa Osman Primary Care Provider: Namita Mo Condition: Stable Anticipated Discharge Date/Time: 06/27/22 09:35 Discharge Medications: New acetaminophen 500 mg Tablet 1,000 mg PO Q6H PRNQty: 30 1RF docusate sodium 100 mg Capsule 100 mg PO DAILY Qty: 30 1RF ibuprofen 600 mg Tablet 600 mg PO Q6H PRNQty: 30 1RF Continued sertraline 100 mg tablet 100 mg PO DAILY montelukast 10 mg tablet 10 mg PO DAILY Discharge Orders: Discharge Order (Routine); Ordered 06/27/22 Ordered By: Kizzy Jones Patient Education: Preeclampsia and Eclampsia After Delivery (GEN), OB Vaginal/Breast Feeding Additional Instructions: Discharge instructions were reviewed with the patient including signs and symptoms of infection and home going medications Nothing vaginally for 6 weeks: no tampons or intercourse Do not drive while taking narcotic pain medication(s) Off Work or School for 8 weeks Symptoms to report to doctor: * Bleeding that saturates more than one pad per hour * Passing clots larger than the size of a golf ball * Pain not relieved by prescribed medication * Fever above 100.4 degrees Fahrenheit * A foul vaginal odor * Difficulty in emotions, mood, and functions * Thoughts of hurting yourself and/or * Painful, reddened area in your breast * Any drainage, redness, or tenderness in your IV/epidural site * Severe headache that doesn't improve after taking medications * Changes in vision, including temporary loss of vision, blurred vision, and/or light sensitivity * Upper abdominal pain (usually under ribs on the right side) * Decrease in urination or painful, frequent urinating * Chest pain * Shortness of breath * Tenderness or pain with redness and/swelling in the calf(s) of your leg Optional 2-week visit: discuss feeding concerns, review control options and screen for anxiety/depression. 6-week visit for an annual exam. consultation services are available to all mothers and babies for the first year after delivery.? To make an appointment, please call [phone].Discharge instructions were reviewed with the patient including signs and symptoms of infection and home going medications Nothing vaginally for 6 weeks: no tampons or intercourse Do not drive while taking narcotic pain medication(s) Off Work or School for 8 weeks Symptoms to report to doctor: * Bleeding that saturates more than one pad per hour * Passing clots larger than the size of a golf ball * Pain not relieved by prescribed medication * Fever above 100.4 degrees Fahrenheit * A foul vaginal odor * Difficulty in emotions, mood, and functions * Thoughts of hurting yourself and/or * Painful, reddened area in your breast * Any drainage, redness, or tenderness in your IV/epidural site * Severe headache that doesn't improve after taking medications * Changes in vision, including temporary loss of vision, blurred vision, and/or light sensitivity * Upper abdominal pain (usually under ribs on the right side) * Decrease in urination or painful, frequent urinating * Chest pain * Shortness of breath * Tenderness or pain with redness and/swelling in the calf(s) of your leg Follow Up in the [facility] for a BP check?06/29/22 Check BP twice daily and write it down. If you get a value higher than 140/90, rest for 10 minutes and recheck. Call with BP greater than or equal to 160/110 on recheck. Activity Level: Activity as Tolerated Discharge Diet: Regular Follow Up Appointments: Namita Mo MD [Primary Care Provider] - ([facility] with Dr. Mo at 8:20 AM on 06/29/22 for BP check) Forms: [employer] Info Instructions
--- NOTE | 2022-07-14 14:40 | PC.NURSE ---
Late Entry: Blood Transfusion recorded/overrode on 07/14/22 for transfusion performed on 06/25/22 @ 2040. See Paper flowsheet for details of transfusion performed at time of administration.
== END 2022-06-27 11:32 | disposition home or self-care (01) | DRG 806 ==
PROVIDERS: Family Medicine; Obstetrics & Gynecology; Admitting Provider Family Medicine; PCP Family Medicine; Visit Provider Family Medicine
DX: O36.63X0 Maternal care for excessive fetal growth, third trimester, not applicable or unspecified (principal); O72.1 Other immediate postpartum hemorrhage; Z37.0 Single live birth; O14.14 Severe pre-eclampsia complicating childbirth; O66.0 Obstructed labor due to shoulder dystocia; O77.0 Labor and delivery complicated by meconium in amniotic fluid; O99.344 Other mental disorders complicating childbirth; F41.9 Anxiety disorder, unspecified; O99.214 Obesity complicating childbirth; Z3A.38 38 weeks gestation of pregnancy
CPT/HCPCS: 01967; 36415; 36430; 59200; 82565; 82570; 83735; 84156; 84450; 84460; 84520; 84550; 85018; 85025; 85027; 85384; 85610; 85730; 86850; 86900; 86901; 86922; 87635; 88307; A9270; J0690; J2370; J2405; J2795; J3010; J3475; J7120; P9016; P9017; S0020

== ENCOUNTER 2023-10-26 07:08 | Day surgery (SDC) | payer BC, SELFPAY ==
[2023-10-26] VITALS (12 sets, daily range): BP systolic 119–156; BP diastolic 79–106; PULSE 78–95; RESP 16–18; TEMP 36.6–36.9; O2SAT 93–98; BMI 46.9
[2023-10-26] MEDS: SODIUM CHLORIDE 0.9 % (FLUSH) 10 ML SYRINGE IVF (07:50)
[2023-10-26] MEDS: LACTATED RINGERS 1000 ML 1,000 ML 100 ML IV (07:50)
[2023-10-26 08:18] LABS: Ur HCG Qualitative* Negative (Negative)
--- NOTE | 2023-10-26 08:41 | W.PM.H&PU ---
History & Physical Update History & Physical Update H&P Reviewed and patient assessed: The following changes are noted below H&P Updates: She has been started on Qvar inhaler for asthma management. Otherwise, no changes.
--- NOTE | 2023-10-26 09:29 | W.ANESCHARGE ---
Anesthesia Charges Start Date/Time Anesthesia Start Date: 10/26/23 Anesthesia Start Time: 09:02 Stop Date/Time Anesthesia Stop Date: 10/26/23 Anesthesia Stop Time: 10:26
[2023-10-26] MEDS: BUPIVACAINE 0.25% 30 ML INJECTION (09:47)
--- NOTE | 2023-10-26 10:27 | W.ANESCHARGE ---
Anesthesia Charges Start Date/Time Anesthesia Start Date: 10/26/23 Anesthesia Start Time: 09:02 Stop Date/Time Anesthesia Stop Date: 10/26/23 Anesthesia Stop Time: 10:26
--- NOTE | 2023-10-26 12:06 | W.PM.GYNPROC ---
Procedure Note Date of procedure: 10/26/23 Will [facility] bill your pro fee for this procedure?: Yes Pre-op diagnosis: Unesired fertility Post-op diagnosis: Same Procedure: Laparoscopic bilateral salpingectomy Anesthesia: GETA Complications: None Surgeon: Suzi Lucas MD Cut Out Operator: Carleen Sweeney Estimated blood loss (mL): 5 IV fluids (mL): 500 Urine Output (mL): 200 Pathology: specimen obtained, sent to pathology (bilateral Fallopian tubes) Condition: stable Disposition: same day Findings: 1. Upon pelvic exam under anesthesia, the cervix and vagina were normal in appearance. Uterus was mobile and anteverted, of normal size and texture. There were no palpable adnexal masses. 2. Upon laparoscopy, survey of the upper abdomen revealed a normal appearance to the inferior edge of the liver. Bowels were grossly normal appearance. Appendix was not visualized, apparently because it was retrocecal. Survey of the pelvis revealed normal appearance to the uterus. Bilateral tubes and ovaries were normal in appearance. The cul-de-sac and bladder reflection were normal in appearance. Procedure Description: Patient was taken to the operating room with IV running. She was positioned in dorsal lithotomy position with her legs fully supported in Yellofin stirrups. General anesthesia was administered. She was prepped and draped in the usual sterile fashion. Bimanual exam was performed for the above-noted findings. Speculum was inserted. A single-toothed uterine manipulator was inserted through the cervix into the lower uterine segment, and affixed to the anterior cervical lip. Speculum was removed. Felton catheter was placed. Patient's legs were placed in neutral position. Attention was turned to patient's abdomen. The infraumbilical area was infiltrated with small amount of Marcaine. An infraumbilical incision was made with a scalpel and carried through to the underlying layer of fascia with a hemostat. The 5 mm Fios Kii trocar was assembled with laparoscope within, and insufflator attached. While tenting up the abdomen with the help of a Nikko clamp on the fascia, the trocar was passed through the anterior abdominal wall into the peritoneal cavity. Trocar was removed. Pneumoperitoneum was achieved. Survey of abdomen and pelvis revealed the above-noted findings. Two additional port sites were created. The first was in the patient's left lower quadrant, just superior medial to the left ASIS. The second was a hand's breath superior to and slightly medial to the first. Each was infiltrated with small amount of Marcaine prior to incision. A 5 mm incision was made at each site, making sure the large vessels were out of harm's way. A 5 mm Fios Kii port was inserted at each site, under direct visualization and without complication. The balloon on each of the three ports was inflated, holding each in place. The left tube was elevated. The blood supply was cauterized and transected with the [employer] cautery device. Dissection was carried laterally to medially through the mesosalpinx, and the tube was ultimately cauterized and transected at the left uterine cornua. Hemostasis was noted. Left tube was removed through the port and sent to pathology. This procedure was repeated on the right side, and hemostasis was again noted. Right tube was removed the port and sent to pathology. All instruments were removed from the ports, and pneumoperitoneum was released. The ports were removed. The skin of each port site was closed with a subcuticular stitch of 4-0 Monocryl. Surgical glue was applied above this. With the patient's legs back in lithotomy position, the uterine manipulator was removed. Hemostasis was noted. The Felton catheter was removed. Patient tolerated procedure well and was taken to recovery area in stable condition.
== END 2023-10-26 12:14 | disposition home or self-care (01) ==
PROVIDERS: PCP Family Medicine; Visit Provider Obstetrics & Gynecology
PROC: (CPT 58661; principal; 2023-10-26 08:45)
DX: Z30.2 Encounter for sterilization (principal)
CPT/HCPCS: 58661; 00840; 00851; 36415; 81025; 86850; 86900; 86901; 88302; J0330; J0665; J1100; J1630; J1885; J2405; J2704; J3010; J7120